=== PATIENT | female | born 1980 | race Caucasian/White ===

== ENCOUNTER → 2016-12-17 | Outpatient (CLI) | payer OTHER ==
[~2016-12-17] MED LIST: IOPAMIDOL (ISOVUE 370) 100 ML BTL IV ONE
== END ==
LOC: FIMAGING 13:45
PROVIDERS: ATTEND Obstetrics & Gynecology
PROC: BU1 Imaging, Female Reproductive System, Fluoroscopy (ICD-10-PCS; principal; 2016-12-17)
DX: Z31.41 Encounter for fertility testing (principal)
CPT/HCPCS: Q9967